=== PATIENT | female | born 1950 | race Caucasian/White ===

== ENCOUNTER 2019-03-05 13:28 | Outpatient (CLI) | payer MEDICARE ==
[~2019-03-05 13:28] MED LIST: Gadobenate Dimeglumine 529 MG/1 ML (20ML VIAL) ONE
--- NOTE | 2019-03-05 16:14 | MRI ---
MRI LUMBAR SPINE WITH AND WITHOUT CONTRAST: HISTORY: Lumbar stenosis with neurogenic claudication. Leg pain with pain radiating down the legs. Previous lumbar surgery. COMPARISON: None. TECHNIQUE: An MRI of the lumbar spine is performed with and without intravenous Gadolinium administration. Mult isequential, multiplanar imaging is performed. FINDINGS: There is appropriate T1 marrow signal intensity of the lumbar vertebrae. Lumbar spine vertebral body height is maintained. There is no fracture. There is mild type I modic change at the L1-L2 level. On the post contrast images, there is no abnormal enhancement with regard to the vertebral bodies. There is no abnormal enhancement within the thecal sac, including the cauda equina and conus medullar is. T2 hyperintensity involving the right kidney, compatible with a cortical cyst, measuring 3.1 x 2.8 cm . The conus medullaris terminates at the inferior aspect of L1. T12-L1: No significant central canal stenosis or neural foraminal narrowing. L1-L2: Mild loss of disk space height. No significant central canal stenosis. Mild bilateral kaylie inal narrowing. L2-L3: Adequate disk hydration. No significant central canal stenosis. The foramina are patent. L3-L4: Adequate disk hydration. No significant central canal stenosis. The neural foramina are pat ent. There is bilateral facet hypertrophy with a small amount of fluid in both facet joints. L4-L5: Adequate disk hydration. No significant loss of disk space height. No significant central c anal stenosis. Mild ligamentum flavum thickening and facet hypertrophy are noted. Mild bilateral fo raminal narrowing. L5-S1: Vacuum disk phenomenon with severe loss of disk space height. Generalized disk bulge without significant central canal stenosis. Moderate right and severe left neural foraminal narrowing. The re is bilateral facet hypertrophy with a small amount of fluid in both facet joints. A left laminoto my defect is identified. Enhancing scar tissue at the operative site is noted. S1-S2: No high-grade central canal stenosis. Of note, there is partial lumbarization of S1. 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 IMPRESSION: 1. Post surgical change at L5-S1. 2. Throughout the central canal stenosis, no evidence of high-grade central canal stenosis. 3. Severe left foraminal narrowing at L5-S1. POS: OFF
== END 2019-03-05 13:29 | disposition home or self-care (01) ==
LOC: TBSIIMAG 13:28
PROVIDERS: ATTEND Neurological Surgery
DX: M48.062 Spinal stenosis, lumbar region with neurogenic claudication (principal); M54.5 Low back pain; M48.07 Spinal stenosis, lumbosacral region; Z98.890 Other specified postprocedural states
CPT/HCPCS: 72158; 82565; A9577

== ENCOUNTER 2019-04-05 01:46 | Outpatient (CLI) | payer MEDICARE ==
[2019-04-05 11:37] LABS: Hemoglobin 15.4 g/dL (12.0-16.0); Mean Corpuscular HGB CONC 33.3 g/dL (32.0-36.0); Mean Corpuscular Hemoglobin 29.6 pg (27.0-31.0); Mean Platelet Volume 9.1 fL (7.4-10.4); Platelet Count 206 thou/uL (130-400); RBC Distribution Width 12.8 % (11.5-14.5); Red Blood Cell (RBC) Count 5.21 mill/uL (4.20-5.40); White Blood Cell (WBC) Count 8.1 thou/uL (4.8-10.8)
[2019-04-05 12:00] LABS: Anion Gap 14 mmol/L (10-20); BUN (Urea Nitrogen) 23 mg/dL (9.8-20.1); Calc. Creatinine Clearance 0 mL/min (70-130); Calcium 10.1 mg/dL (7.8-10.44); Carbon Dioxide 23 mmol/L (23-31); Chloride 110 mmol/L (98-107); Estimated GFR-MDRD 60; Glucose 87 mg/dL (80-115); Potassium 4.3 mmol/L (3.5-5.1); Sodium 143 mmol/L (136-145)
--- NOTE | 2019-04-06 13:53 | EKG ---
Test Reason : Blood Pressure : / mmHG Vent. Rate : 067 BPM Atrial Rate : 067 BPM P-R Int : 168 ms QRS Dur : 082 ms QT Int : 418 ms P-R-T Axes : 038 -35 042 degrees QTc Int : 441 ms Normal sinus rhythm Left axis deviation Low voltage QRS Abnormal ECG No previous ECGs available Confirmed by DR. Lan MCGOWAN ([id number]) on 04/06/2019 1:53:22 PM Referred By: ROBERTO Confirmed By:DR. Lan MCGOWAN
== END 2019-04-05 01:47 | disposition home or self-care (01) ==
LOC: LABBT 01:46
PROVIDERS: ATTEND Neurological Surgery
DX: Z01.818 Encounter for other preprocedural examination (principal); M54.16 Radiculopathy, lumbar region
CPT/HCPCS: 80048; 85027; 93005; 93010

== ENCOUNTER 2019-04-05 09:00 | Inpatient (IN) | payer MEDICARE ==
[2019-04-05 09:51] VITALS: BMI 40.8
[2019-04-10] MEDS ORDERED: Sodium Chloride 0.9% 10 ML ONE (06:37)
[2019-04-10] MEDS ORDERED: Fentanyl 100 MCG/2 ML VIAL ONE ×2 (07:13→09:31)
[2019-04-10] MEDS ORDERED: HYDROmorphone 2 MG/ML VIAL ONE (07:14)
[2019-04-10] MEDS ORDERED: Promethazine HCl 25 MG/ML VIAL IM PRN ×2 (09:08→15:54)
[2019-04-10] MEDS ORDERED: Promethazine HCl 25 MG/ML VIAL SLOW IVP PRN (09:08)
[2019-04-10] MEDS ORDERED: HYDROmorphone 2 MG/ML VIAL SLOW IVP PRN (09:08)
[2019-04-10] MEDS ORDERED: PACU-Morphine 4MG/ML VIAL SLOW IVP PRN (09:08)
[2019-04-10] MEDS ORDERED: Ondansetron HCl/PF 4 MG/2 ML Vial IVP PRN (09:08)
[2019-04-10] MEDS ORDERED: ePHEDrine 50 MG/ML VIAL ONE (13:48)
[2019-04-10] MEDS ORDERED: Dexamethasone 20 MG/5 ML VIAL ONE (13:48)
[2019-04-10] MEDS ORDERED: Ketorolac Tromethamine 30 MG/ML VIAL ONE (13:48)
[2019-04-10] MEDS ORDERED: Lidocaine 1% PF 5 ML VIAL ONE (13:48)
[2019-04-10] MEDS ORDERED: PROPOFOL 200 MG/20 ML VIAL ONE (13:48)
[2019-04-10] MEDS ORDERED: Rocuronium Bromide 10 MG/ML (10ML VIAL) ONE (13:48)
[2019-04-10] MEDS ORDERED: Glycopyrrolate 0.2 MG/ML 5 ML SYRINGE ONE (13:48)
[2019-04-10] MEDS ORDERED: Ondansetron PF 4 MG/2 ML Vial ONE (13:48)
[2019-04-10] MEDS ORDERED: HYDROcodone/Acetaminophen 10/325 mg Tablet PO PRN ×2 (15:54)
[2019-04-10] MEDS ORDERED: diphenhydrAMINE 50 MG/ML VIAL IVP PRN (15:54)
[2019-04-10] MEDS ORDERED: Milk Of Magnesia 30 ML UDCUP PO PRN (15:54)
[2019-04-10] MEDS ORDERED: Promethazine 25 MG TAB PO PRN (15:54)
[2019-04-10] MEDS ORDERED: Ondansetron PF 4 MG/2 ML Vial IM PRN (15:54)
[2019-04-10] MEDS ORDERED: diphenhydrAMINE 25 MG CAP PO PRN (15:54)
[2019-04-10] MEDS ORDERED: Promethazine HCl 12.5 MG SUPP PR PRN (15:54)
[2019-04-10] MEDS ORDERED: traMADol HCl 50 MG TAB PO PRN ×2 (15:54)
[2019-04-10] MEDS ORDERED: Morphine 4 MG/ML VIAL SLOW IVP PRN (15:54)
[2019-04-10] MEDS ORDERED: Mag-Al 1200 mg/1200 mg/30 ML UDCUP PO PRN (15:54)
[2019-04-10] MEDS ORDERED: tiZANidine HCl 4 MG TAB PO PRN (15:54)
--- NOTE | 2019-04-10 16:04 | OP ---
DATE OF PROCEDURE: 04/10/2019 UNDERWRITING SALES REPRESENTATIVE: Eduardo. PROCEDURE: Bilateral L5-S1 foraminotomies and laminectomies, posterolateral arthrodesis, pedicle screw instrumentation, demineralized bone matrix, local morselized autograft at L5-S1. DESCRIPTION OF PROCEDURE: The patient was brought to the operating room and intubated. She was rolled in a prone position on gel-filled chest rolls. The previous incision was reopened, L5-S1 area was exposed. The previous hemilaminotomy seemed to be at left L5-S1. We performed a left-sided laminectomy, facetectomy, and foraminotomy, completely decompressing left L5. We then placed pedicle screws bilaterally using lateral fluoroscopic guidance. The josh was secured between the screws and distraction was applied bilaterally. Nuts were secured and final tightened. The wound was then extensively irrigated and MAC hemostasis was secured. A combination of demineralized bone matrix and local morselized autograft was laid over the lamina, posterolateral surfaces for the purpose of arthrodesis. Vancomycin powder was applied and the wound was closed in anatomic layers. Job ID: [id number]
[2019-04-10] MEDS: Ketorolac Tromethamine 30 MG/ML VIAL IVP SCH ×2 (18:40→22:27)
[2019-04-10] MEDS: CEFAZOLIN 2 GM in Premix Bag 1 BAG IVPB SCH (21:48)
[2019-04-11] MEDS: CEFAZOLIN 2 GM in Premix Bag 1 BAG IVPB SCH (05:26)
[2019-04-11] MEDS: Ketorolac Tromethamine 30 MG/ML VIAL IVP SCH ×2 (05:27→10:10)
[2019-04-11 08:12] VITALS: BP 110/70; TEMP 98.5
[2019-04-11] MEDS ORDERED: Amlodipine 5 MG TAB PO SCH (09:00)
--- NOTE | 2019-04-11 15:26 | DIS ---
DATE OF ADMISSION: 04/10/2019 DATE OF DISCHARGE: 04/11/2019 HOSPITAL COURSE: The patient is a 68-year-old female, status post L5-S1 decompression and fusion for spondylolisthesis. Following the surgery, she was transitioned to the Med/Surg floor. Her pain has been well-controlled with p.o. medications, she has been tolerating a regular diet, and she has been voiding appropriately. She had no incisional drainage issues overnight. She has been up ambulating throughout the department without any difficulty. Her pain is well controlled and she would like to go home this morning. She is awake, alert, in no acute distress. She has free active range of motion of all extremities. No focal motor weakness or reflex asymmetry. Her dressing is dry. We will dismiss the patient to home. She has been provided with scripts for hydrocodone, Zanaflex, and Keflex. Discussed home care precautions. We will follow up in 2 weeks. Job ID: [id number]
== END 2019-04-11 10:55 | disposition home or self-care (01) | DRG 460 ==
LOC: SURG A 04-10 05:43 → EDSTATUS 04-10 09:00 → SURG A 04-10 15:45
PROVIDERS: ADMIT Neurological Surgery; ATTEND Neurological Surgery
PROC: 0SG3071 Fusion of Lumbosacral Joint with Autologous Tissue Substitute, Posterior Approach, Posterior Column, Open Approach (ICD-10-PCS; principal; 2019-04-10)
DX: M43.17 Spondylolisthesis, lumbosacral region (principal); M54.16 Radiculopathy, lumbar region; Z90.49 Acquired absence of other specified parts of digestive tract
CPT/HCPCS: 76000; C1713; C1768; J0690; J1100; J1170; J1885; J2001; J2405; J2704; J3010; J3370; J3490

== ENCOUNTER 2019-04-25 09:49 | Outpatient (CLI) | payer MEDICARE ==
--- NOTE | 2019-04-25 10:06 | RAD ---
TWO VIEWS LUMBAR SPINE: HISTORY: Tendinopathy. FINDINGS: AP and lateral views of the lumbar spine obtained. Pedicle screws are seen fusing the L5 and S1 vertebral levels. There is minimal anterolisthesis of L5 on S1. There is disc space height loss with anterior osteophytes and endplate sclerotic changes seen at the L1-2 disc space. There is minimal retrolisthesis of L1 on L2 and mild retrolisthesis of L 2 on L3. IMPRESSION: L1-2 changes of spondylosis with L5-S1 lumbar spine fusion. Transcribed Date/Time: 04/25/2019 11:01 AM
== END 2019-04-25 09:50 | disposition home or self-care (01) ==
LOC: TBSIIMAG 09:49
PROVIDERS: ATTEND Neurological Surgery
DX: M47.26 Other spondylosis with radiculopathy, lumbar region (principal); Z98.1 Arthrodesis status
CPT/HCPCS: 72100

== ENCOUNTER 2019-06-18 14:12 | Outpatient (CLI) | payer MEDICARE ==
--- NOTE | 2019-06-18 15:19 | RAD ---
LUMBAR SPINE 2 VIEWS: Date: 06/18/19 HISTORY: Lumbar disc degeneration. Follow-up surgery. COMPARISON: 04/25/19. FINDINGS: Pedicle screws are again noted transfixing L5-S1. Slight anterolisthesis at L5-S1 is unchanged. Loss of disc space at this level is unchanged. Degenerative osteophytes again noted. No interval change. IMPRESSION: Postoperative and degenerative changes lumbar spine appear stable. POS: KATHY
== END 2019-06-18 14:13 | disposition home or self-care (01) ==
LOC: TBSIIMAG 14:12
PROVIDERS: ATTEND Neurological Surgery
DX: M51.36 Other intervertebral disc degeneration, lumbar region (principal); M47.816 Spondylosis without myelopathy or radiculopathy, lumbar region; Z98.890 Other specified postprocedural states
CPT/HCPCS: 72100

== ENCOUNTER 2019-08-21 12:00 | Inpatient (IN) | payer MEDICARE ==
[~2019-08-21 12:00] MED LIST changes: -Gadobenate Dimeglumine 529 MG/1 ML (20ML VIAL) ONE; +ISOVUE-370 76%-LOCM 1 ML ONE
[2019-08-21] MEDS ORDERED: Lidocaine 1% w/Epinephrine 1:100K 20 ML VIAL ONE (13:47)
[2019-08-21] MEDS ORDERED: Acetaminophen 500 MG TAB ONE (13:48)
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
[2019-08-21 15:13] LABS: #Eosinphils 0.1 thou/uL (0.0-0.7); #Lymphocytes 1.5 thou/uL (1.20-3.40); #Neutrophils 12.7 thou/uL (1.40-6.50); %Basophils 0.2 % (0.0-1.0); %Eosinophils 0.4 % (0.0-10.0); %Lymphocytes 9.5 % (21.0-51.0); %Monocytes 6.3 % (0.0-10.0); %Neutrophils 83.6 % (42.0-75.0); Hemoglobin 14.6 g/dL (12.0-16.0); Mean Corpuscular HGB CONC 33.4 g/dL (32.0-36.0); Mean Corpuscular Hemoglobin 29.9 pg (27.0-31.0); Mean Corpuscular Volume 89.4 fL (78.0-98.0); Mean Platelet Volume 8.6 fL (7.4-10.4); Platelet Count 194 thou/uL (130-400); RBC Distribution Width 12.4 % (11.5-14.5); Red Blood Cell (RBC) Count 4.88 mill/uL (4.20-5.40); White Blood Cell (WBC) Count 15.2 thou/uL (4.8-10.8)
[2019-08-21 15:35] LABS: ALT (SGPT) 26 U/L (8-55); AST (SGOT) 40 U/L (5-34); Albumin 4.4 g/dL (3.4-4.8); Alkaline Phosphatase 92 U/L (40-110); Anion Gap 16 mmol/L (10-20); BUN (Urea Nitrogen) 26 mg/dL (9.8-20.1); Bilirubin, Total 0.6 mg/dL (0.2-1.2); Calc. Creatinine Clearance 0 mL/min (70-130); Calcium 9.6 mg/dL (7.8-10.44); Carbon Dioxide 21 mmol/L (23-31); Chloride 108 mmol/L (98-107); Estimated GFR-MDRD 54; Glucose 111 mg/dL (80-115); Potassium 3.8 mmol/L (3.5-5.1); Protein, Total 7.4 g/dL (6.0-8.3); Sodium 141 mmol/L (136-145)
[2019-08-21] MEDS ORDERED: Adacel (T-DAP) 0.5 ML SYRINGE ONE (15:43)
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
[2019-08-21] MEDS ORDERED: Morphine 4 MG/ML VIAL ONE (17:26)
[2019-08-21] MEDS ORDERED: Ondansetron PF 4 MG/2 ML Vial ONE (17:26)
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
--- NOTE | 2019-08-21 18:29 | RAD ---
XR Hand Rt 3 View STANDARD History: Injury. Pain. Comparison: None. Findings: There is concern for fracture of the medial margin of the hamate extending into the carpome tacarpal joint. Severe degenerative disease of the thumb carpometacarpal joint as well as moderate to severe degenerative disease of the scaphoid trapezium trapezoid joint. Since of interphalangeal joint space narrowing with osteophyte formation. No erosions. Impression: Concern for intra-articular fracture medial margin of the hamate.
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
[2019-08-21 19:40] VITALS: BMI 41.0
[2019-08-21] MEDS ORDERED: Ondansetron PF 4 MG/2 ML Vial IVP PRN (19:44)
[2019-08-21] MEDS ORDERED: Ondansetron ODT 4 MG TAB PO PRN (19:44)
[2019-08-21] MEDS ORDERED: hydrALAZINE 20 MG/ML VIAL SLOW IVP PRN (19:44)
[2019-08-21] MEDS ORDERED: Dextrose 50% Abboject 50 ML SYRINGE SLOW IVP PRN (19:44)
[2019-08-21] MEDS ORDERED: Dextrose 5% in Water 1,000 ML IV PRN (19:44)
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
[2019-08-21] MEDS: Gabapentin 100 MG CAP PO SCH (20:25)
[2019-08-21] MEDS: Famotidine 20 MG TAB PO SCH (20:25)
[2019-08-21] MEDS: traMADol HCl 50 MG TAB PO PRN (20:25)
[2019-08-21] MEDS: Cyclobenzaprine 10 MG TAB PO PRN (22:47)
[2019-08-21] MEDS: Sodium Chloride 0.9% 1,000 ML IV SCH (22:49)
[2019-08-21] MEDS: Indomethacin 25 mg Capsule PO SCH (23:06)
[2019-08-21] MEDS: Acetaminophen 1,000 MG in Premix Bag 1 BAG IVPB SCH (23:06)
[2019-08-22] MEDS: Morphine 2 MG/ML SYRINGE SLOW IVP PRN ×3 (00:50→17:32)
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
[2019-08-22 04:32] LABS: #Basophils 0.1 thou/uL (0.0-0.2); #Eosinphils 0.1 thou/uL (0.0-0.7); #Lymphocytes 1.9 thou/uL (1.20-3.40); #Monocytes 0.9 thou/uL (0.11-0.59); #Neutrophils 5.5 thou/uL (1.40-6.50); %Basophils 0.7 % (0.0-1.0); %Eosinophils 1.5 % (0.0-10.0); %Lymphocytes 22.6 % (21.0-51.0); %Monocytes 10.3 % (0.0-10.0); %Neutrophils 64.9 % (42.0-75.0); Hemoglobin 12.1 g/dL (12.0-16.0); INR-International Normal Ratio 1.2; Mean Corpuscular HGB CONC 34.6 g/dL (32.0-36.0); Mean Corpuscular Hemoglobin 30.6 pg (27.0-31.0); Mean Corpuscular Volume 88.4 fL (78.0-98.0); PTT 29.1 SEC (22.9-36.1); Platelet Count 158 thou/uL (130-400); Prothrombin Time 14.8 SEC (12.0-14.7); RBC Distribution Width 12.4 % (11.5-14.5); Red Blood Cell (RBC) Count 3.96 mill/uL (4.20-5.40); White Blood Cell (WBC) Count 8.4 thou/uL (4.8-10.8)
[2019-08-22 04:48] LABS: Anion Gap 12 mmol/L (10-20); BUN (Urea Nitrogen) 27 mg/dL (9.8-20.1); Calc. Creatinine Clearance 78 mL/min (70-130); Calcium 8.2 mg/dL (7.8-10.44); Carbon Dioxide 21 mmol/L (23-31); Chloride 108 mmol/L (98-107); Estimated GFR-MDRD 52; Glucose 95 mg/dL (80-115); Magnesium 1.7 mg/dL (1.6-2.6); Potassium 3.8 mmol/L (3.5-5.1); Sodium 137 mmol/L (136-145)
[2019-08-22 04:51] LABS: Phosphorus 4.3 mg/dL (2.3-4.7)
[2019-08-22] MEDS: Acetaminophen 1,000 MG in Premix Bag 1 BAG IVPB SCH ×3 (05:48→17:33)
[2019-08-22] MEDS: traMADol HCl 50 MG TAB PO PRN ×2 (05:51→20:56)
[2019-08-22] MEDS: Sodium Chloride 0.9% 1,000 ML IV SCH (08:24)
[2019-08-22] MEDS ORDERED: Magnesium 2 GM/50 ML 2 GM in Premix Bag 1 BAG IVPB SCH (08:45)
[2019-08-22] MEDS ORDERED: Amlodipine 5 MG TAB PO SCH (09:00)
[2019-08-22] MEDS ORDERED: Prevnar 13-Val Conj/PF 0.5 ML SYRINGE IM ONE (09:00)
[2019-08-22] MEDS: Gabapentin 100 MG CAP PO SCH ×3 (09:07→20:54)
[2019-08-22] MEDS: Amlodipine 5 MG TAB PO SCH (09:07)
[2019-08-22] MEDS: Lisinopril/Hydrochlorothiazide 20 mg/12.5 mg Tablet PO SCH (09:08)
[2019-08-22] MEDS: Indomethacin 25 mg Capsule PO SCH ×2 (09:08→20:54)
--- NOTE | 2019-08-22 10:18 | RAD ---
ONE VIEW CHEST: HISTORY: Bilateral rib fractures. Preoperative exam. FINDINGS: Slight elongation of the aorta. Normal cardiac silhouette. Pulmonary vessels and hilum are normal. C ostophrenic angles are clear. No consolidation or mass. No pneumothorax. Rib fractures are difficult to appreciate radiographically. Refer to CT 08/21/2019 for further details. IMPRESSION: No acute cardiopulmonary process. No pneumothorax. POS: OFF
[2019-08-22] MEDS ORDERED: CEFAZOLIN 2 GM in Premix Bag 1 BAG IVPB SCH (12:00)
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
[2019-08-22] MEDS ORDERED: HYDROmorphone 0.5 MG/0.5 ML SYRINGE ONE (12:31)
[2019-08-22] MEDS ORDERED: Fentanyl 100 MCG/2 ML VIAL ONE ×3 (12:31→16:00)
[2019-08-22] MEDS ORDERED: Famotidine/PF 20 mg/2ml Vial ONE (12:56)
[2019-08-22] MEDS ORDERED: ePHEDrine/0.9% NaCl/PF SYRINGE 50 mg/10 ml ONE (14:15)
[2019-08-22] MEDS ORDERED: Ondansetron HCl/PF 4 MG/2 ML Vial IVP PRN (16:17)
[2019-08-22] MEDS ORDERED: HYDROmorphone 2 MG/ML VIAL SLOW IVP PRN (16:17)
[2019-08-22] MEDS ORDERED: PACU-Morphine 4MG/ML VIAL SLOW IVP PRN (16:17)
[2019-08-22] MEDS ORDERED: Promethazine HCl 25 MG/ML VIAL IM PRN (16:17)
[2019-08-22] MEDS ORDERED: Promethazine HCl 25 MG/ML VIAL SLOW IVP PRN (16:17)
[2019-08-22] MEDS ORDERED: Meperidine HCl/PF 25 MG/ML VIAL SLOW IVP PRN (16:17)
[2019-08-22] MEDS ORDERED: Morphine Sulfate 2 MG/ML SYRINGE SLOW IVP PRN (16:17)
--- NOTE | 2019-08-22 17:25 | RAD ---
XR Knee Rt 2 View History: ORIF Comparison: Radiograph prior day Findings: Satisfactory postoperative appearance internal fixation of the transverse patellar fracture along with the medial tibial plateau fracture. Fibular head fracture is visualized. Impression: Satisfactory postoperative appearance.
[2019-08-22] MEDS: Cyclobenzaprine 10 MG TAB PO PRN (20:52)
[2019-08-22] MEDS: Famotidine 20 MG TAB PO SCH (20:54)
[2019-08-22] MEDS: CEFAZOLIN 2 GM in Premix Bag 1 BAG IVPB SCH (20:55)
--- NOTE | 2019-08-22 22:05 | OP ---
DATE OF PROCEDURE: 08/22/2019 PROCEDURES: 1. Open reduction and internal fixation of right posterior medial tibial plateau. 2. Open reduction and internal fixation of right patella fracture. 3. Open reduction and internal fixation of right medial malleolus fracture. PREOPERATIVE DIAGNOSES: Displaced right posterior medial tibial plateau fracture, displaced right patella fracture, and right medial malleolus fracture. POSTOPERATIVE DIAGNOSES: Displaced right posterior medial tibial plateau fracture, displaced right patella fracture, and right medial malleolus fracture. COMPLICATIONS: None. ESTIMATED BLOOD LOSS: 150 mL. ANESTHESIA: General. IMPLANTS: Synthes posterior medial tibial plate was utilized with locking screws, two 4.0 partially-threaded cannulated screws and a cable were used in the patella. Next, a single 4.0 partially-threaded screw was used in the ankle. DESCRIPTION OF PROCEDURE: Ms. Fitzgerald was identified in the preoperative holding area. Her correct extremity was marked. She was carried to the operating room. She was positioned supine. General anesthesia was induced. A multidisciplinary time-out was performed. The right lower extremity was prepped and draped in sterile fashion. We began the procedure with the tibial plateau. We made a posterior medial approach to the tibial plateau. We dissected down through the subcutaneous tissues to the fascia, which was opened. We carefully dissected down to the bony level. We protected the neurovascular structures. We encountered the comminuted and displaced tibial plateau fracture. At this point, we elevated the cortical fragments, exposing the joint surface. We elevated this joint surface back into its anatomic position. We then packed cancellous bone chips underneath the cartilaginous fragments to support this bone. We then folded back the cortical bone. At this point, we applied a buttress plate to the posterior cortex of the tibia. Multiple screws were placed in the fragment as well as distally buttressing the posteromedial aspect of the tibia. We thoroughly irrigated with copious lavage. We took x-ray images, confirming position, was appropriately placed. At this point, we moved to the patella. We made an anterior knee incision. We dissected down through the subcutaneous tissues to the patella. The fracture was encountered. There was a transverse fracture pattern. We reduced the fracture fragments back into their appropriate position. We then placed a clamp across the fracture. Next, we placed two screws across the fracture. These were partially threaded cancellous screws. Finally, we placed a cable through the screws and over the top of the patella in a [id number] pattern, locking the construct together. We took x-ray images. The hardware was appropriately placed. There were no complications, and the fracture was well reduced. We then moved to the ankle. We made a small incision over the medial malleolus of the ankle. We dissected down to the bony level with a hemostat. We applied pressure and reduced the medial malleolar fracture. At this point, we placed a guidewire followed by overdrilling. We then placed a partially-threaded 4.0 screw over the guidewire. This gave a good bite and had good fixation. We took x-ray images confirming the ankle was stable and the medial malleolus was well reduced. We thoroughly irrigated all wounds and closed appropriately in layers. A sterile dressing was applied. At this point, we placed the patient in a long-leg splint. She was taken to the recovery room in good condition. Job ID: [id number]
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
[2019-08-23] MEDS: Acetaminophen 500 MG TAB PO SCH ×4 (00:17→18:29)
[2019-08-23] MEDS: CEFAZOLIN 2 GM in Premix Bag 1 BAG IVPB SCH (05:45)
[2019-08-23] MEDS: traMADol HCl 50 MG TAB PO PRN ×2 (05:58→20:50)
[2019-08-23] MEDS: Amlodipine 5 MG TAB PO SCH (08:18)
[2019-08-23] MEDS: Lisinopril/Hydrochlorothiazide 20 mg/12.5 mg Tablet PO SCH (08:19)
[2019-08-23] MEDS: Gabapentin 100 MG CAP PO SCH ×3 (08:19→20:44)
[2019-08-23] MEDS: Polyethylene Glycol 3350 17 GM Packet PO SCH (11:04)
[2019-08-23] MEDS: Indomethacin 25 mg Capsule PO SCH (11:04)
[2019-08-23] MEDS: Senokot S 8.6-50 MG TAB PO SCH ×2 (11:05→20:44)
[2019-08-23 11:12] LABS: #Monocytes 1.1 thou/uL (0.11-0.59); #Neutrophils 12.3 thou/uL (1.40-6.50); %Basophils 0.2 % (0.0-1.0); %Eosinophils 0.2 % (0.0-10.0); %Lymphocytes 6.7 % (21.0-51.0); %Monocytes 7.8 % (0.0-10.0); %Neutrophils 85.1 % (42.0-75.0); Hemoglobin 11.9 g/dL (12.0-16.0); Mean Corpuscular HGB CONC 33.8 g/dL (32.0-36.0); Mean Corpuscular Hemoglobin 30.5 pg (27.0-31.0); Mean Corpuscular Volume 90.4 fL (78.0-98.0); Mean Platelet Volume 8.7 fL (7.4-10.4); Platelet Count 177 thou/uL (130-400); RBC Distribution Width 12.2 % (11.5-14.5); Red Blood Cell (RBC) Count 3.91 mill/uL (4.20-5.40); White Blood Cell (WBC) Count 14.5 thou/uL (4.8-10.8)
[2019-08-23 11:20] LABS: Bacteria/HPF None Seen HPF (None Seen); Bilirubin Negative (Negative); Blood, Urine 1+ (Negative); Clarity Clear (Clear); Glucose, Urine (Dipstick) Normal (Negative); Leukocyte 250 Leu/uL (Negative); Nitrite Negative (Negative); Protein, Urine (Dipstick) Negative (Neg-Trace); RBC/HPF 0-3 HPF (0-3); Urobilinogen Normal mg/dL (Less than 2)
[2019-08-23 11:24] LABS: Urine Culture Reflex No No
[2019-08-23 11:44] LABS: Anion Gap 15 mmol/L (10-20); BUN (Urea Nitrogen) 25 mg/dL (9.8-20.1); Calc. Creatinine Clearance 63 mL/min (70-130); Calcium 8.6 mg/dL (7.8-10.44); Carbon Dioxide 21 mmol/L (23-31); Chloride 105 mmol/L (98-107); Estimated GFR-MDRD 41; Glucose 103 mg/dL (80-115); Phosphorus 3.2 mg/dL (2.3-4.7); Potassium 4.5 mmol/L (3.5-5.1); Sodium 136 mmol/L (136-145)
[2019-08-23] MEDS ORDERED: Sodium Chloride 0.9% 500 ML IV SCH (13:15)
[2019-08-23 19:08] LABS: Hemoglobin 11.5 g/dL (12.0-16.0); Mean Corpuscular HGB CONC 33.8 g/dL (32.0-36.0); Mean Corpuscular Volume 88.7 fL (78.0-98.0); Mean Platelet Volume 8.5 fL (7.4-10.4); Platelet Count 163 thou/uL (130-400); RBC Distribution Width 12.2 % (11.5-14.5); Red Blood Cell (RBC) Count 3.82 mill/uL (4.20-5.40); White Blood Cell (WBC) Count 15.5 thou/uL (4.8-10.8)
[2019-08-23 19:21] LABS: Anion Gap 15 mmol/L (10-20); BUN (Urea Nitrogen) 31 mg/dL (9.8-20.1); Calc. Creatinine Clearance 65 mL/min (70-130); Calcium 8.7 mg/dL (7.8-10.44); Carbon Dioxide 18 mmol/L (23-31); Chloride 105 mmol/L (98-107); Estimated GFR-MDRD 42; Glucose 100 mg/dL (80-115); Phosphorus 3.1 mg/dL (2.3-4.7); Potassium 4.3 mmol/L (3.5-5.1); Sodium 134 mmol/L (136-145)
[2019-08-23 19:28] LABS: Band 2 % (5-11); Lymphocytes 11 % (21-51); MDiff Complete? YES; Monocytes 4 % (0-10); Neutrophil 83 % (42-75); Platelet Morphology Comment Appears Adequate
[2019-08-23] MEDS: Cyclobenzaprine 10 MG TAB PO PRN (20:43)
[2019-08-23] MEDS: Famotidine 20 MG TAB PO SCH (20:45)
[2019-08-23] MEDS: Enoxaparin Sodium 30 MG/0.3 ML SYRINGE SC SCH (20:46)
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
[2019-08-23] MEDS ORDERED: Gabapentin 100 MG CAP PO SCH ×2 (22:13→22:30)
[2019-08-23 23:09] LABS: Lactic Acid 2.2 mmol/L (0.5-2.2)
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
[2019-08-24] MEDS: Acetaminophen 500 MG TAB PO SCH ×5 (00:06→23:39)
[2019-08-24 04:44] LABS: Lactic Acid 1.4 mmol/L (0.5-2.2)
[2019-08-24 04:50] LABS: Anion Gap 11 mmol/L (10-20); BUN (Urea Nitrogen) 32 mg/dL (9.8-20.1); Calc. Creatinine Clearance 74 mL/min (70-130); Calcium 8.7 mg/dL (7.8-10.44); Carbon Dioxide 23 mmol/L (23-31); Chloride 108 mmol/L (98-107); Estimated GFR-MDRD 49; Glucose 91 mg/dL (80-115); Magnesium 2.1 mg/dL (1.6-2.6); Phosphorus 3.2 mg/dL (2.3-4.7); Potassium 4.3 mmol/L (3.5-5.1); Sodium 138 mmol/L (136-145)
[2019-08-24 05:07] LABS: Band 2 % (5-11); Eosinophils 2 % (0-10); Hemoglobin 10.6 g/dL (12.0-16.0); Lymphocytes 24 % (21-51); MDiff Complete? YES; Mean Corpuscular HGB CONC 33.5 g/dL (32.0-36.0); Mean Corpuscular Hemoglobin 30.4 pg (27.0-31.0); Mean Corpuscular Volume 90.9 fL (78.0-98.0); Mean Platelet Volume 8.6 fL (7.4-10.4); Monocytes 10 % (0-10); Neutrophil 62 % (42-75); Platelet Count 159 thou/uL (130-400); Platelet Morphology Comment Appears Adequate; RBC Distribution Width 12.3 % (11.5-14.5); Red Blood Cell (RBC) Count 3.47 mill/uL (4.20-5.40); White Blood Cell (WBC) Count 11.1 thou/uL (4.8-10.8)
[2019-08-24] MEDS: traMADol HCl 50 MG TAB PO PRN ×2 (06:22→21:03)
[2019-08-24] MEDS: Amlodipine 5 MG TAB PO SCH (09:53)
[2019-08-24] MEDS: Cyclobenzaprine 10 MG TAB PO PRN ×2 (09:53→21:19)
[2019-08-24] MEDS: Polyethylene Glycol 3350 17 GM Packet PO SCH (09:54)
[2019-08-24] MEDS: Gabapentin 100 MG CAP PO SCH ×3 (09:54→21:02)
[2019-08-24] MEDS: Senokot S 8.6-50 MG TAB PO SCH ×2 (09:54→21:04)
[2019-08-24] MEDS: Lisinopril/Hydrochlorothiazide 20 mg/12.5 mg Tablet PO SCH (09:54)
[2019-08-24] MEDS: Enoxaparin Sodium 30 MG/0.3 ML SYRINGE SC SCH ×2 (09:54→21:04)
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
[2019-08-24] MEDS: Famotidine 20 MG TAB PO SCH (21:02)
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
[2019-08-25 05:35] LABS: #Basophils 0.1 thou/uL (0.0-0.2); #Eosinphils 0.2 thou/uL (0.0-0.7); #Lymphocytes 2.4 thou/uL (1.20-3.40); #Monocytes 0.8 thou/uL (0.11-0.59); #Neutrophils 5.1 thou/uL (1.40-6.50); %Basophils 0.9 % (0.0-1.0); %Eosinophils 2.9 % (0.0-10.0); %Lymphocytes 27.3 % (21.0-51.0); %Monocytes 9.6 % (0.0-10.0); %Neutrophils 59.4 % (42.0-75.0); Hemoglobin 11.5 g/dL (12.0-16.0); Mean Corpuscular HGB CONC 33.8 g/dL (32.0-36.0); Mean Corpuscular Hemoglobin 30.7 pg (27.0-31.0); Mean Platelet Volume 8.6 fL (7.4-10.4); Platelet Count 179 thou/uL (130-400); RBC Distribution Width 12.4 % (11.5-14.5); Red Blood Cell (RBC) Count 3.74 mill/uL (4.20-5.40); White Blood Cell (WBC) Count 8.6 thou/uL (4.8-10.8)
[2019-08-25] MEDS: Acetaminophen 500 MG TAB PO SCH ×4 (05:44→23:58)
[2019-08-25] MEDS: Polyethylene Glycol 3350 17 GM Packet PO SCH (08:37)
[2019-08-25] MEDS: Amlodipine 5 MG TAB PO SCH (08:37)
[2019-08-25] MEDS: Gabapentin 100 MG CAP PO SCH ×3 (08:37→21:29)
[2019-08-25] MEDS: Enoxaparin Sodium 30 MG/0.3 ML SYRINGE SC SCH ×2 (08:37→21:31)
[2019-08-25] MEDS: Senokot S 8.6-50 MG TAB PO SCH ×2 (08:38→21:29)
[2019-08-25] MEDS: Lisinopril/Hydrochlorothiazide 20 mg/12.5 mg Tablet PO SCH (08:38)
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
[2019-08-25] MEDS: Cyclobenzaprine 10 MG TAB PO PRN (21:30)
[2019-08-25] MEDS: Famotidine 20 MG TAB PO SCH (21:38)
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
[2019-08-26] MEDS: Acetaminophen 500 MG TAB PO SCH ×4 (05:38→23:33)
[2019-08-26] MEDS: Gabapentin 100 MG CAP PO SCH ×3 (09:02→20:48)
[2019-08-26] MEDS: Polyethylene Glycol 3350 17 GM Packet PO SCH (09:02)
[2019-08-26] MEDS: Senokot S 8.6-50 MG TAB PO SCH ×2 (09:02→20:48)
[2019-08-26] MEDS: Lisinopril/Hydrochlorothiazide 20 mg/12.5 mg Tablet PO SCH (09:02)
[2019-08-26] MEDS: Enoxaparin Sodium 30 MG/0.3 ML SYRINGE SC SCH ×2 (09:03→20:48)
[2019-08-26] MEDS: Amlodipine 5 MG TAB PO SCH (09:03)
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
[2019-08-26] MEDS: traMADol HCl 50 MG TAB PO PRN (23:33)
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
[2019-08-27] MEDS: traMADol HCl 50 MG TAB PO PRN (06:27)
[2019-08-27] MEDS: Acetaminophen 500 MG TAB PO SCH ×3 (06:28→18:13)
[2019-08-27] MEDS: Gabapentin 100 MG CAP PO SCH ×2 (08:46→18:13)
[2019-08-27] MEDS: Lisinopril/Hydrochlorothiazide 20 mg/12.5 mg Tablet PO SCH (08:46)
[2019-08-27] MEDS: Amlodipine 5 MG TAB PO SCH (08:46)
[2019-08-27] MEDS: Enoxaparin Sodium 30 MG/0.3 ML SYRINGE SC SCH (08:47)
[2019-08-27] MEDS: Polyethylene Glycol 3350 17 GM Packet PO SCH (08:49)
[2019-08-27] MEDS: Senokot S 8.6-50 MG TAB PO SCH (08:49)
--- NOTE | 2019-08-27 13:45 | RAD ---
RIGHT ANKLE 2 VIEWS: HISTORY: ORIF right ankle. FINDINGS: There has been interval reduction and internal fixation of the medial malleolar fracture with a screw since exam of 08/21/2019. POS: [facility]
[2019-08-27 19:48] VITALS: BP 134/96; TEMP 99.8
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
== END 2019-08-27 19:52 | DRG 493 ==
LOC: ERS 12:00 → SURG A 16:44
PROVIDERS: ADMIT Surgery; ATTEND Surgery
PROC: 3E0234Z Introduction of Serum, Toxoid and Vaccine into Muscle, Percutaneous Approach (ICD-10-PCS; 2019-08-21)
PROC: 0HQKXZZ Repair Right Lower Leg Skin, External Approach (ICD-10-PCS; 2019-08-21)
PROC: 0QSG04Z Reposition Right Tibia with Internal Fixation Device, Open Approach (ICD-10-PCS; principal; 2019-08-22)
PROC: 0QSD04Z Reposition Right Patella with Internal Fixation Device, Open Approach (ICD-10-PCS; 2019-08-22)
DX: S82.141A Displaced bicondylar fracture of right tibia, initial encounter for closed fracture (principal); S82.001A Unspecified fracture of right patella, initial encounter for closed fracture; S22.43XA Multiple fractures of ribs, bilateral, initial encounter for closed fracture; N17.9 Acute kidney failure, unspecified; S82.51XA Displaced fracture of medial malleolus of right tibia, initial encounter for closed fracture; I10 Essential (primary) hypertension; Z96.643 Presence of artificial hip joint, bilateral; M10.9 Gout, unspecified; S60.212A Contusion of left wrist, initial encounter; S62.141A Displaced fracture of body of hamate [unciform] bone, right wrist, initial encounter for closed fracture; S81.011A Laceration without foreign body, right knee, initial encounter; S82.451A Displaced comminuted fracture of shaft of right fibula, initial encounter for closed fracture; Z79.899 Other long term (current) drug therapy; Z88.2 Allergy status to sulfonamides; Z90.49 Acquired absence of other specified parts of digestive tract; Z23 Encounter for immunization; V53.5XXA Driver of pick-up truck or van injured in collision with car, pick-up truck or van in traffic accident, initial encounter
CPT/HCPCS: 36415; 71045; 71111; 71260; 74177; 76000; 80048; 80053; 81001; 82533; 83605; 83735; 84100; 85007; 85025; 85027; 85610; 85730; 90471; 90670; 90715; C1713; C1769; G0009; G0390; J0131; J0690; J1170; J1650; J2270; J2405; J3010; J3475; Q9966; S0028

== ENCOUNTER 2020-06-18 07:10 | Outpatient (CLI) | payer MEDICARE, OTHER ==
[2020-06-18 11:26] LABS: Hemoglobin 14.4 g/dL (12.0-16.0); Mean Corpuscular HGB CONC 32.9 g/dL (32.0-36.0); Mean Corpuscular Hemoglobin 29.8 pg (27.0-31.0); Mean Corpuscular Volume 90.5 fL (78.0-98.0); Mean Platelet Volume 9.8 fL (7.4-10.4); Platelet Count 203 thou/uL (130-400); RBC Distribution Width 12.1 % (11.5-14.5); Red Blood Cell (RBC) Count 4.84 mill/uL (4.20-5.40); White Blood Cell (WBC) Count 7.1 thou/uL (4.8-10.8)
[2020-06-18 11:43] LABS: Prothrombin Time 13.4 sec (12.0-14.7)
[2020-06-18 12:05] LABS: Calcium 9.8 mg/dL (7.8-10.44); Chloride 107 mmol/L (98-107); Potassium 4.4 mmol/L (3.5-5.1); Sodium 141 mmol/L (136-145)
[2020-06-18 12:06] LABS: Glucose 116 mg/dL (83-110)
[2020-06-18 12:07] LABS: Anion Gap 15 mmol/L (10-20); Carbon Dioxide 23 mmol/L (23-31)
[2020-06-18 12:09] LABS: Calc. Creatinine Clearance 0 mL/min (70-130); Estimated GFR-MDRD 62
[2020-06-18 12:10] LABS: BUN (Urea Nitrogen) 22 mg/dL (9.8-20.1)
[2020-06-18 18:21] LABS: SARS-CoV-2 MS2 Positive; SARS-CoV-2 N Gene Negative; SARS-CoV-2 S Gene Negative; SARS-CoV-2 by NAA Not Detected (NotDetected); SARS-CoV-2 orf1ab Negative
== END 2020-06-18 07:11 | disposition home or self-care (01) ==
LOC: LABBT 07:10
PROVIDERS: ATTEND Orthopaedic Surgery
DX: Z01.812 Encounter for preprocedural laboratory examination (principal); Z11.59 Encounter for screening for other viral diseases; M17.11 Unilateral primary osteoarthritis, right knee
CPT/HCPCS: 80048; 85027; 85610; U0003; 87635

== ENCOUNTER 2021-10-01 08:49 | Outpatient (CLI) | payer MEDICARE ==
[2021-10-01 17:43] LABS: SARS-CoV-2 PCR by NAA Not Detected (NotDetected)
== END 2021-10-01 08:50 | disposition home or self-care (01) ==
LOC: LABBT 08:49
PROVIDERS: ATTEND Internal Medicine Gastroenterology
DX: Z01.812 Encounter for preprocedural laboratory examination (principal); Z20.822 Contact with and (suspected) exposure to COVID-19
CPT/HCPCS: U0003; U0005

== ENCOUNTER → 2021-10-05 | Day surgery (SDC) | payer MEDICARE | LOC: SDC 13:46 | PROVIDERS: ATTEND Internal Medicine Gastroenterology | DX: R13.10 Dysphagia, unspecified (principal); K29.70 Gastritis, unspecified, without bleeding; K21.9 Gastro-esophageal reflux disease without esophagitis; M19.90 Unspecified osteoarthritis, unspecified site; I10 Essential (primary) hypertension; G47.30 Sleep apnea, unspecified; E66.3 Overweight; Z68.35 Body mass index [BMI] 35.0-35.9, adult; Z79.899 Other long term (current) drug therapy; Z88.2 Allergy status to sulfonamides | CPT/HCPCS: 91010 ==

== ENCOUNTER 2023-07-24 09:50 | Outpatient (CLI) | payer OTHER | END 2023-07-24 09:51 | disposition home or self-care (01) | LOC: BICMAMMO 09:50 | PROVIDERS: ATTEND Internal Medicine | DX: Z12.31 Encounter for screening mammogram for malignant neoplasm of breast (principal) | CPT/HCPCS: 77063; 77067 ==

== ENCOUNTER 2024-09-11 12:24 | Outpatient (CLI) | payer OTHER | END 2024-09-11 12:25 | disposition home or self-care (01) | LOC: BICMAMMO 12:24 | PROVIDERS: ATTEND Internal Medicine | DX: Z12.31 Encounter for screening mammogram for malignant neoplasm of breast (principal) | CPT/HCPCS: 77063; 77067 ==